=== PATIENT | male | born 1990 | race American Indian/Alaskan Native ===

== ENCOUNTER 2020-07-31 14:18 | Inpatient (IN) | payer OTHER ==
[2020-07-31] MEDS ORDERED: SODIUM CHLORIDE 0.9% 1000 ML IV SOLN IV ONE (15:19)
--- NOTE | 2020-07-31 15:21 | Event Note ---
ED Screening Note Date of service: 07/31/20 Time: 15:20 ED Screening Note: Complains of cough and shortness of breath x1 month and body aches, chills, and vomiting x2 weeks Patient states was tested for Covid 2 weeks ago and given antibiotics at another hospital, but denies being diagnosed with pneumonia at the time History of HIV-states he has not been on antiretrovirals in 5 years Patient is tachycardic, febrile, with O2 sat of 92% on room air and hypotensive This initial assessment/diagnostic orders/clinical plan/treatment(s) is/are subject to change based on patients health status, clinical progression and re- assessment by fellow clinical providers in the ED. Further treatment and workup at subsequent clinical providers discretion. Patient/guardian urged not to elope from the ED as their condition may be serious if not clinically assessed and managed. Initial orders include: Sepsis protocol
[2020-07-31 16:01] LABS: Basophils % (Auto) 0.3 % (0.0-1.8); Eosinophils % (Auto) 0.1 % (0.0-4.3); Hematocrit 28.7 % (35.5-45.6); Hemoglobin 9.3 gm/dl (11.8-15.2); Lymphocytes # (Auto) 0.6 K/mm3 (1.2-5.4); Lymphocytes % (Auto) 12.5 % (13.4-35.0); Mean Corpuscular HGB Conc 32 % (32-34); Mean Corpuscular Volume 85 fl (84-94); Monocytes # (Auto) 0.4 K/mm3 (0.0-0.8); Monocytes % (Auto) 6.9 % (0.0-7.3); Platelet Count 390 K/mm3 (140-440); Red Blood Count 3.38 M/mm3 (3.65-5.03); Red Cell Distribution Width 18.4 % (13.2-15.2)
--- NOTE | 2020-07-31 16:03 | XRay Report ---
CHEST 2 VIEWS INDICATION / CLINICAL INFORMATION: +SIRS, cough, SOB, hypoxia. COMPARISON: None available. FINDINGS: SUPPORT DEVICES: None. HEART / MEDIASTINUM: No significant abnormality. LUNGS / PLEURA: There is faint left upper lung parenchymal opacity. No pneumothorax. ADDITIONAL FINDINGS: No significant additional findings. IMPRESSION: 1. Faint left upper lung parenchymal opacity that may indicate developing pneumonia. Signer Name: Jericho Alberto MD Signed: 07/31/2020 3:58 PM Workstation Name: [id number]
[2020-07-31 16:13] LABS: Alanine Aminotransferase 34 units/L (7-56); Albumin 2.5 g/dL (3.9-5); Blood Urea Nitrogen 11 mg/dL (9-20); Calcium 7.8 mg/dL (8.4-10.2); Hemolysis Index 2
[2020-07-31 16:17] LABS: BUN/Creatinine Ratio 16
[2020-07-31] MEDS ORDERED: ACETAMINOPHEN 325 MG TAB PO ONE (16:29)
[2020-07-31] MEDS ORDERED: CEFEPIME/NS 2 GM/100 ML 2 GM/100 ML BAG IV ONE (16:51)
[2020-07-31] MEDS ORDERED: VANCOMYCIN 1,250 MG in SODIUM CHLORIDE 0.9% 500 ML 500 ML IV ONE (16:51)
[2020-07-31] MEDS ORDERED: dexAMETHasone 20 MG/5 ML VIAL IV ONE (16:58)
--- NOTE | 2020-07-31 16:58 | Emergency Department Report ---
- General Chief Complaint: Upper Respiratory Infection Stated Complaint: FLU SYMPTOMS/HIV SICK Time Seen by Provider: 07/31/20 15:14 Source: patient Mode of arrival: Ambulatory Limitations: No Limitations - History of Present Illness Initial Comments: 30-year-old male with a past medical history of HIV off antiretrovirals for the past 5 years presents to the hospital complaining not feeling good for several months. He does complain of coughing and shortness of breath x1 month. Patient just recently moved here from [place] in the last several weeks via car. 1 to 2 weeks ago he was seen at a [facility] ER. Tested negative for Covid and was prescribed antibiotics for symptoms. Patient state he has some mild improvement but started to feel bad again. Recently patient has had some intermittent vomiting without diarrhea. Patient presents with a fever but denies feeling febrile at home patient states his last time his CD4 count and viral load was tested was 5 years ago. Initially evaluated patient in triage and informed staff to initiate IV and IV fluids while waiting for room to become available - Related Data Allergies Allergy/AdvReac Type Severity Reaction Status Date / Time No Known Allergies Allergy Unverified 07/31/20 16:51 ED Review of Systems ROS: Stated complaint: FLU SYMPTOMS/HIV SICK Other details as noted in HPI Comment: All other systems reviewed and negative ED Past Medical Hx - Past Medical History Additional medical history: HIV - Surgical History Past Surgical History?: No ED Physical Exam - General Limitations: No Limitations - Other Other exam information: General: Cachectic Head: Atraumatic Eyes: normal appearance Neck: Normal appearance, no midline tenderness Chest: Clear to auscultation bilaterally CV: Tachycardic regular rhythm Abdomen: Soft, normal bowel sounds, nontender, nondistended, no rebound or guarding Back: Normal inspection Extremity: Normal inspection, full range of motion Neuro: Alert O x 3, no facial asymmetry, speech clear, no gross motor sensory deficit Psych: Appropriate behavior Skin: No rash ED Course Vital Signs 07/31/20 07/31/20 07/31/20 15:15 18:13 19:49 Temperature 100.6 F H Pulse Rate 119 H 104 H Respiratory 20 18 22 Rate Blood Pressure 83/58 Blood Pressure 107/69 [Left] O2 Sat by Pulse 92 96 Oximetry - Reevaluation(s) Reevaluation #1: 07/31/20 19:54 BP improved with fluid bolus ED Medical Decision Making - Lab Data Result diagrams: 07/31/20 15:24 07/31/20 16:54 - EKG Data -: EKG Interpreted by Me EKG shows normal: sinus rhythm, ST-T waves (No STEMI) Rate: tachycardia (109) - Radiology Data Radiology results: report reviewed Chest x-ray: Faint left upper lung parenchymal opacity which may indicate developing pneumonia - Medical Decision Making 30-year-old male with past medical history of HIV noncompliant with meds presents to the hospital with ongoing fatigue, respiratory symptoms, and presents with fever and hypoxia. X-ray suggestive of pneumonia. Given patient's general physical appearance I have a high suspicion that he has AIDS. Patient treated with unknown antibiotics for unknown diagnosis after ER evaluation in [place] within the last 2 weeks. For that reason patient was treated for hospital-acquired pneumonia with vancomycin and cefepime in the ED. 30 mL/kg bolus of normal saline ordered. Decadron 6 mg IV ordered due to hypoxia with suspicion of Covid. patient does not have any signs of lactic acidosis. Covid order set pending as well as blood cultures. Patient to be adm itted to the hospital service with ID consultation. Pt also provided po bactrim to cover for possible pcp pneumonia pt with hypotension but map >65 lactic acid normal Critical Care Time: Yes Critical care time in (mins) excluding proc time.: 35 Critical care attestation.: If time is entered above; I have spent that time in minutes in the direct care of this critically ill patient, excluding procedure time. ED Disposition Clinical Impression: Sepsis, Pneumonia, HIV (human immunodeficiency virus infection), Suspected COVID-19 virus infection, Hypoxia Disposition: OP ADMIT IP TO THIS HOSP Is pt being admited?: Yes Condition: Stable Time of Disposition: 18:28 (Dr Shearer/hosp)
[2020-07-31] MEDS ORDERED: VANCOMYCIN PHARMACY TO DOSE IV SCH (17:00)
[2020-07-31 17:32] LABS: C-Reactive Protein 3.5 mg/dL (0.00-1.30)
[2020-07-31] MEDS ORDERED: SODIUM CHLORIDE 0.9% 1000 ML 1,000 ML ONE (17:55)
[2020-07-31] MEDS ORDERED: MORPHINE 2 MG/1 ML INJ IV PRN (18:56)
[2020-07-31] MEDS ORDERED: ACETAMINOPHEN 325 MG TAB PO PRN (18:56)
[2020-07-31] MEDS ORDERED: ONDANSETRON 4 MG/2 ML INJ IV PRN (18:56)
[2020-07-31] MEDS ORDERED: MAGNESIUM HYDROXIDE (MOM) ORAL LIQD UDC PO PRN (18:56)
--- NOTE | 2020-07-31 19:09 | History and Physical Report ---
History of Present Illness Date of examination: 07/31/20 Date of admission: 07/31/2020 Chief complaint: Cough Shortness of Breath History of present illness: 30-year-old -[place] male with known history of HIV with unknown CD4 count presenting to the emergency room today complaining of shortness of breath and cough which has been ongoing for about a month. Patient indicates that he has been off his antiretroviral medication for about 5 years. He has not followed up with any physician. He just recently relocated from [place] several weeks ago. He states he was seen at the [facility] about 2 weeks ago and indicates he tested negative for COVID-19 and was also prescribed some antibiotics -name unknown. Patient has been having fever, intermittent nausea and vomiting, denies any diarrhea, denies any chest pain, no headache or dizziness, no hematuria or dysuria. Upon arrival in the emergency room he was slightly hypotensive and hypoxic. Work-up in the emergency room reveals left upper lobe infiltrate. Patient has been commenced on IV fluid, empiric IV antibiotics and will also be ruled out for COVID-19. Past History Past Medical History: other (HIV positive-unknown CD4 count) Past Surgical History: No surgical history Social history: no significant social history Family history: no significant family history Medications and Allergies Allergies Allergy/AdvReac Type Severity Reaction Status Date / Time No Known Allergies Allergy Unverified 07/31/20 16:51 Active Meds: Active Medications Acetaminophen (Acetaminophen 325 Mg Tab) 650 mg PO Q4H PRN PRN Reason: Pain MILD(1-3)/Fever >100.5/KRUEGER Enoxaparin Sodium (Enoxaparin 40 Mg/0.4 Ml Inj) 40 mg SUB-Q QDAY@2200 AMANDA; Protocol Vancomycin HCl (Vancomycin/Ns 1 Gm/250 Ml) 1 gm in 250 mls @ 125 mls/hr IV Q8H AMANDA Cefepime HCl (Cefepime/Ns 2 Gm/100 Ml) 2 gm in 100 mls @ 200 mls/hr IV Q8H AMANDA; Protocol Magnesium Hydroxide (Magnesium Hydroxide (Mom) Oral Liqd Udc) 30 ml PO Q4H PRN PRN Reason: Constipation Morphine Sulfate (Morphine 2 Mg/1 Ml Inj) 2 mg IV Q4H PRN PRN Reason: Pain, Moderate (4-6) Ondansetron HCl (Ondansetron 4 Mg/2 Ml Inj) 4 mg IV Q8H PRN PRN Reason: Nausea And Vomiting Sodium Chloride (Sodium Chloride 0.9% 10 Ml Flush Syringe) 10 ml IV BID AMANDA Sodium Chloride (Sodium Chloride 0.9% 10 Ml Flush Syringe) 10 ml IV PRN PRN PRN Reason: LINE FLUSH Review of Systems Constitutional: fever, chills Ears, nose, mouth and throat: no nasal congestion, no sore throat Cardiovascular: no chest pain, no palpitations Respiratory: cough, shortness of breath Gastrointestinal: no abdominal pain, no nausea, no vomiting, no diarrhea Genitourinary Male: no dysuria, no hematuria, no flank pain Integumentary: no rash, no pruritis Neurological: no headaches, no confusion Psychiatric: no anxiety, no depression Exam - Constitutional Vitals: Temp Pulse Resp BP Pulse Ox 100.6 F H 119 H 18 83/58 92 07/31/20 15:15 07/31/20 15:15 07/31/20 18:13 07/31/20 15:15 07/31/20 15:15 General appearance: Present: no acute distress, cachectic - EENT Eyes: Present: PERRL, EOM intact. Absent: scleral icterus ENT: hearing intact, clear oral mucosa, dentition normal - Neck Neck: Present: supple, normal ROM - Respiratory Respiratory effort: normal Respiratory: bilateral: diminished - Cardiovascular Rhythm: regular Heart Sounds: Present: S1 & S2. Absent: gallop, systolic murmur, diastolic murmur, rub - Extremities Extremities: no ischemia, pulses intact, pulses symmetrical, No edema, normal temperature, normal color, Full ROM Peripheral Pulses: within normal limits - Abdominal General gastrointestinal: Present: soft, non-tender, non-distended, normal bowel sounds. Absent: mass - Integumentary Integumentary: Present: clear, warm, dry. Absent: rash - Musculoskeletal Musculoskeletal: strength equal bilaterally - Psychiatric Psychiatric: appropriate mood/affect, intact judgment & insight, memory intact, cooperative - Neurologic Neurologic: CNII-XII intact, no focal deficits, moves all extremities Results - Labs CBC & Chem 7: 07/31/20 15:24 07/31/20 16:54 Labs: Abnormal lab results 07/31/20 07/31/20 07/31/20 Range/Units 15:24 15:24 16:54 RBC 3.38 L (3.65-5.03) M/mm3 Hgb 9.3 L (11.8-15.2) gm/dl Hct 28.7 L (35.5-45.6) % RDW 18.4 H (13.2-15.2) % Lymph % (Auto) 12.5 L (13.4-35.0) % Lymph # (Auto) 0.6 L (1.2-5.4) K/mm3 Seg Neutrophils % 80.2 H (40.0-70.0) % D-Dimer 587.40 H (0-234) ng/mlDDU Creatinine 0.7 L (0.8-1.3) mg/dL Calcium 7.8 L (8.4-10.2) mg/dL Ferritin (30.0-300.0) ng/mL AST 69 H (5-40) units/L Lactate Dehydrogenase (91-180) units/L C-Reactive Protein (0.00-1.30) mg/dL Albumin 2.5 L (3.9-5) g/dL 07/31/20 07/31/20 Range/Units 16:54 16:54 RBC (3.65-5.03) M/mm3 Hgb (11.8-15.2) gm/dl Hct (35.5-45.6) % RDW (13.2-15.2) % Lymph % (Auto) (13.4-35.0) % Lymph # (Auto) (1.2-5.4) K/mm3 Seg Neutrophils % (40.0-70.0) % D-Dimer (0-234) ng/mlDDU Creatinine (0.8-1.3) mg/dL Calcium (8.4-10.2) mg/dL Ferritin > 2000.0 H (30.0-300.0) ng/mL AST (5-40) units/L Lactate Dehydrogenase 408 H (91-180) units/L C-Reactive Protein 3.50 H (0.00-1.30) mg/dL Albumin (3.9-5) g/dL Assessment and Plan - Patient Problems (1) Pneumonia Current Visit: Yes Status: Acute Plan to address problem: Patient commenced on empiric IV antibiotics. We will await culture results. We will also await recommendation from infectious disease. We will consider PCP prophylaxis in view of his HIV/AIDS disease. (2) Hypoxia Current Visit: Yes Status: Acute Plan to address problem: Possibly secondary to the pneumonia. We will keep O2 saturation greater or equal to 94%. (3) HIV (human immunodeficiency virus infection) Current Visit: Yes Status: Acute Plan to address problem: CD4 count unknown. Patient has been off his antiretroviral agents for about 5 years. We will await evaluation by infectious disease. (4) Sepsis Current Visit: Yes Status: Acute Plan to address problem: Secondary to the pneumonia. Continue empiric IV antibiotics and IV fluid. (5) Suspected COVID-19 virus infection Current Visit: Yes Status: Acute Plan to address problem: Patient placed on isolation precautions. We will await COVID-19 testing. We will also await evaluation by infectious disease. (6) DVT prophylaxis Current Visit: Yes Status: Acute Plan to address problem: Patient placed on subcutaneous Lovenox. (7) Full code status Current Visit: Yes Status: Acute Plan to address problem: Patient is full code.
[2020-07-31] MEDS: VANCOMYCIN/NS 1 GM/250 ML 1 GM/250 ML BAG IV SCH (22:05)
[2020-07-31] MEDS: SULFAMETHOXAZOLE/TRIMETHOPRIM 800/160MG DS TAB PO SCH (22:05)
[2020-07-31] MEDS: ENOXAPARIN 40 MG/0.4 ML INJ SUB-Q SCH (22:06)
[2020-08-01 04:07] LABS: Bacteria,Urine 1+ /HPF (Negative); Bilirubin,Urine NEG (Negative); Blood,Urine NEG (Negative); Color,Urine Straw (Yellow); Mucus,Urine FEW /HPF; Protein,Urine <15 mg/dL mg/dL (Negative); RBC,Urine < 1.0 /HPF (0.0-6.0); Urobilinogen,Urine < 2.0 mg/dL (<2.0)
[2020-08-01 06:23] LABS: Basophils % (Auto) 0.1 % (0.0-1.8); Hematocrit 30.5 % (35.5-45.6); Hemoglobin 9.8 gm/dl (11.8-15.2); Lymphocytes # (Auto) 1.1 K/mm3 (1.2-5.4); Lymphocytes % (Auto) 15.3 % (13.4-35.0); Mean Corpuscular HGB Conc 32 % (32-34); Mean Corpuscular Volume 87 fl (84-94); Monocytes # (Auto) 0.3 K/mm3 (0.0-0.8); Platelet Count 374 K/mm3 (140-440); Red Blood Count 3.52 M/mm3 (3.65-5.03); Red Cell Distribution Width 18.6 % (13.2-15.2)
[2020-08-01] MEDS ORDERED: guaiFENesin DM 200/20 MG ORAL LIQD 10 ML PO PRN (06:24)
[2020-08-01] MEDS: CEFEPIME/NS 2 GM/100 ML 2 GM/100 ML BAG IV SCH ×2 (06:30→11:44)
[2020-08-01 06:45] LABS: INR 1.02 (0.87-1.13)
[2020-08-01 07:30] LABS: BUN/Creatinine Ratio 18; Blood Urea Nitrogen 11 mg/dL (9-20); Calcium 7.7 mg/dL (8.4-10.2); Hemolysis Index 0
[2020-08-01] MEDS: VANCOMYCIN/NS 1 GM/250 ML 1 GM/250 ML BAG IV SCH ×2 (08:05→13:50)
[2020-08-01] MEDS: guaiFENesin/CODEINE 100-10MG ORAL LIQD 5 ML PO PRN ×2 (11:44→22:55)
[2020-08-01] MEDS: SULFAMETHOXAZOLE/TRIMETHOPRIM 800/160MG DS TAB PO SCH (11:45)
[2020-08-01] MEDS: dexAMETHasone 4 MG/ML VIAL IV SCH (11:45)
--- NOTE | 2020-08-01 16:10 | Consultation ---
History of Present Illness - Reason for Consult Consult date: 08/01/20 - History of Present Illness 30-year-old man past medical history HIV presented to ER complaining of shortness of breath. He notes his began possibly 1 month prior to admission, though he just recently relocated to [place] from [place] several weeks ago and has not established care with any physicians in the state yet. He stopped taking his antiretrovirals approximately 5 years previous, and has an unknown CD4 count at the present time. He says negative for Covid approximately weeks prior to hospital in [place] and was given his antibiotics at that time which did not improve his symptoms. He complains of associated fevers, nausea, vomiting, denies any other symptoms. Febrile to 100.6 with a white count of 6.9. Normal renal function, normal procalcitonin. Elevated inflammatory markers elevated lactate dehydrogenase. Blood cultures currently pending. He is on cefepime and vancomycin as well as Bactrim. Imaging personally revivewed: CXR: faint DESIRE parenchymal opacity. Review of systems: Deferred due to PPE conservation strategy. Past History Past Medical History: other (HIV positive-unknown CD4 count) Past Surgical History: No surgical history Social history: no significant social history Family history: no significant family history Medications and Allergies Allergies Allergy/AdvReac Type Severity Reaction Status Date / Time No Known Allergies Allergy Unverified 07/31/20 16:51 Active Meds: Active Medications Acetaminophen (Acetaminophen 325 Mg Tab) 650 mg PO Q4H PRN PRN Reason: Pain MILD(1-3)/Fever >100.5/KRUEGER Dexamethasone (Dexamethasone 4 Mg/Ml Vial) 6 mg IV Q24HR [facility] Last Admin: 08/01/20 11:45 Dose: 6 mg Documented by: Enoxaparin Sodium (Enoxaparin 40 Mg/0.4 Ml Inj) 40 mg SUB-Q QDAY@2200 AMANDA; Protocol Last Admin: 07/31/20 22:06 Dose: 40 mg Documented by: Guaifenesin (Guaifenesin Dm 200/20 Mg Oral Liqd 10 Ml) 10 ml PO Q4H PRN PRN Reason: Cough Vancomycin HCl (Vancomycin/Ns 1 Gm/250 Ml) 1 gm in 250 mls @ 125 mls/hr IV Q8H [facility] Last Admin: 08/01/20 13:50 Dose: 125 mls/hr Documented by: Cefepime HCl (Cefepime/Ns 2 Gm/100 Ml) 2 gm in 100 mls @ 200 mls/hr IV Q8H AMANDA; Protocol Last Admin: 08/01/20 11:44 Dose: 200 mls/hr Documented by: Magnesium Hydroxide (Magnesium Hydroxide (Mom) Oral Liqd Udc) 30 ml PO Q4H PRN PRN Reason: Constipation Morphine Sulfate (Morphine 2 Mg/1 Ml Inj) 2 mg IV Q4H PRN PRN Reason: Pain, Moderate (4-6) Last Admin: 08/01/20 14:55 Dose: 2 mg Documented by: Ondansetron HCl (Ondansetron 4 Mg/2 Ml Inj) 4 mg IV Q8H PRN PRN Reason: Nausea And Vomiting Pseudoephedrine/Acetam/Chlorphenir (Guaifenesin/Codeine 100-10mg Oral Liqd 5 Ml) 10 ml PO Q4H PRN PRN Reason: Cough Last Admin: 08/01/20 11:44 Dose: 10 ml Documented by: Sodium Chloride (Sodium Chloride 0.9% 10 Ml Flush Syringe) 10 ml IV BID AMANDA Last Admin: 08/01/20 11:10 Dose: 10 ml Documented by: Sodium Chloride (Sodium Chloride 0.9% 10 Ml Flush Syringe) 10 ml IV PRN PRN PRN Reason: LINE FLUSH Trimethoprim/Sulfamethoxazole (Sulfamethoxazole/Trimethoprim 800/160mg Ds Tab) 1 each PO Q12HR [facility]; Protocol Last Admin: 08/01/20 11:45 Dose: 1 each Documented by: Physical Examination - Physical Exam Narrative exam: Physical exam deferred due to PPE conservation strategy. Please refer to [facility] team's note. - Constitutional Vitals: Vital Signs Temp Pulse Resp BP Pulse Ox 100.6 F H 71 26 H 90/62 100 07/31/20 15:15 08/01/20 06:30 08/01/20 06:30 08/01/20 06:30 08/01/20 06:30 Results - Labs CBC & Chem 7: 08/01/20 05:49 08/01/20 05:49 Labs: Abnormal lab results 07/31/20 07/31/20 07/31/20 Range/Units 15:24 15:24 16:54 RBC 3.38 L (3.65-5.03) M/mm3 Hgb 9.3 L (11.8-15.2) gm/dl Hct 28.7 L (35.5-45.6) % RDW 18.4 H (13.2-15.2) % Lymph % (Auto) 12.5 L (13.4-35.0) % Lymph # (Auto) 0.6 L (1.2-5.4) K/mm3 Seg Neutrophils % 80.2 H (40.0-70.0) % D-Dimer 587.40 H (0-234) ng/mlDDU Creatinine 0.7 L (0.8-1.3) mg/dL Glucose (75-100) mg/dL Calcium 7.8 L (8.4-10.2) mg/dL Ferritin (30.0-300.0) ng/mL AST 69 H (5-40) units/L Lactate Dehydrogenase (91-180) units/L C-Reactive Protein (0.00-1.30) mg/dL Albumin 2.5 L (3.9-5) g/dL 07/31/20 07/31/20 08/01/20 Range/Units 16:54 16:54 05:49 RBC 3.52 L (3.65-5.03) M/mm3 Hgb 9.8 L (11.8-15.2) gm/dl Hct 30.5 L (35.5-45.6) % RDW 18.6 H (13.2-15.2) % Lymph % (Auto) (13.4-35.0) % Lymph # (Auto) 1.1 L (1.2-5.4) K/mm3 Seg Neutrophils % 79.6 H (40.0-70.0) % D-Dimer (0-234) ng/mlDDU Creatinine (0.8-1.3) mg/dL Glucose (75-100) mg/dL Calcium (8.4-10.2) mg/dL Ferritin > 2000.0 H (30.0-300.0) ng/mL AST (5-40) units/L Lactate Dehydrogenase 408 H (91-180) units/L C-Reactive Protein 3.50 H (0.00-1.30) mg/dL Albumin (3.9-5) g/dL 08/01/20 Range/Units 05:49 RBC (3.65-5.03) M/mm3 Hgb (11.8-15.2) gm/dl Hct (35.5-45.6) % RDW (13.2-15.2) % Lymph % (Auto) (13.4-35.0) % Lymph # (Auto) (1.2-5.4) K/mm3 Seg Neutrophils % (40.0-70.0) % D-Dimer (0-234) ng/mlDDU Creatinine 0.6 L (0.8-1.3) mg/dL Glucose 138 H (75-100) mg/dL Calcium 7.7 L (8.4-10.2) mg/dL Ferritin (30.0-300.0) ng/mL AST (5-40) units/L Lactate Dehydrogenase (91-180) units/L C-Reactive Protein (0.00-1.30) mg/dL Albumin (3.9-5) g/dL Assessment and Plan Cultures: Blood culture pending Covid pending A/P: 30-year-old man has medical history HIV not on treatment but the hospital shortness of breath as Covid PUI #Left upper lobe pneumonia/Covid PUI: Await Covid testing. Given chronicity of symptoms and prior Covid test could be other etiologies. Pneumocystis is typically bilateral, however that may not show up on chest x-ray. Normal procalcitonin. He is not currently hypoxic. #HIV: Not on medications for 5 years. No HIV provider in [place]. Will hold off on initiation of ART pending diagnosis Recs: -Order chest CT to rule out pneumocystis -Decrease Bactrim for now to prophylactic dose of every 24 hours. Patient is currently stable, especially need empirically treat for BJP pending work-up. -Follow-up Covid testing -Check CD4 and viral load -Recommend patient follow-up with [place] [facility] as outpatient due to uninsured status. -Stop vancomycin in the meantime. -Continue cefepime pending CT. Thank you for the consult, we will continue to follow. Dr. Bonner taking over tomorrow Valentino Pulliam MD [facility] O: [phone] F: [phone]
--- NOTE | 2020-08-01 18:45 | Cat Scan Report ---
CT chest wo con HISTORY: Infection. COMPARISON: None TECHNIQUE: Chest CT exam. All CT scans at this location are performed using CT dose reduction for ALA RA by means of automated exposure control. FINDINGS: CT CHEST: Lungs: There is bilateral groundglass opacities with mild associated thickening of interlobular septa . A couple of pneumatoceles are present for example in the right upper lobe on image 26 and 27 of ser ies 2. Associated pebronchial thickening. No peripheral subpleural predilection. Trachea and Bronchi: No significant abnormality. Mediastinum/Lymph nodes: No lymphadenopathy. Heart: No significant abnormality. Vasculature: No significant abnormality. Osseous Structures: No aggressive appearing osseous lesions. Additional Findings: None IMPRESSION: 1. Bilateral airspace disease most consistent with an infectious etiology. Pneumocystis pneumonia is a concern in the correct clinical setting. Signer Name: Ryley Davies MD Signed: 08/01/2020 6:41 PM Workstation Name: [id number]
--- NOTE | 2020-08-01 19:39 | Progress Note ---
Assessment and Plan (1) Pneumonia Current Visit: Yes Status: Acute Plan to address problem: Patient commenced on empiric IV antibiotics. We will continue on antibiotics and follow infectious disease recommendation (2) Hypoxia Current Visit: Yes Status: Acute Plan to address problem: Possibly secondary to the pneumonia. We will keep O2 saturation greater or equal to 94%. (3) HIV (human immunodeficiency virus infection) Current Visit: Yes Status: Acute Plan to address problem: CD4 count unknown. Patient has been off his antiretroviral agents for about 5 years. We will check CD4 count (4) Sepsis Current Visit: Yes Status: Acute Plan to address problem: Secondary to the pneumonia. Continue empiric IV antibiotics and IV fluid. (5) Suspected COVID-19 virus infection Current Visit: Yes Status: Acute Plan to address problem: Covid test was negative (6) DVT prophylaxis Current Visit: Yes Status: Acute Plan to address problem: Patient placed on subcutaneous Lovenox. (7) Full code status Current Visit: Yes Status: Acute Plan to address problem: Patient is full code. Subjective Date of service: 08/01/20 Principal diagnosis: (1) Pneumonia Interval history: 30-year-old -[place] male with known history of HIV with unknown CD4 count presenting to the emergency room today complaining of shortness of breath and cough which has been ongoing for about a month. Patient indicates that he has been off his antiretroviral medication for about 5 years. He has not followed up with any physician. He just recently relocated from [place] several weeks ago. He states he was seen at the [facility] a bout 2 weeks ago and indicates he tested negative for COVID-19 and was also prescribed some antibiotics -name unknown. Patient has been having fever, intermittent nausea and vomiting, denies any diarrhea, denies any chest pain, no headache or dizziness, no hematuria or dysuria. Upon arrival in the emergency room he was slightly hypotensive and hypoxic. Work-up in the emergency room reveals left upper lobe infiltrate. Patient has been commenced on IV fluid, empiric IV antibiotics and will also be ruled out for COVID-19. 08/01/2020 Complained of cough this a.m. Denies any fever or chills. COVID-19 negative Objective - Constitutional Vitals: Vital Signs - 12hr 08/01/20 08/01/20 08/01/20 07:46 08:00 08:16 Pulse Rate 70 68 70 Respiratory 28 H 26 H 21 Rate Blood Pressure 93/69 99/66 99/66 O2 Sat by Pulse 100 100 100 Oximetry 08/01/20 08/01/20 08/01/20 08:30 08:46 09:00 Pulse Rate 67 87 88 Respiratory 26 H 12 22 Rate Blood Pressure 99/66 99/66 107/77 O2 Sat by Pulse 100 95 89 Oximetry 08/01/20 08/01/20 08/01/20 09:16 09:30 09:46 Pulse Rate 77 82 81 Respiratory 21 14 15 Rate Blood Pressure 107/77 107/77 107/77 O2 Sat by Pulse 92 99 95 Oximetry 08/01/20 08/01/20 08/01/20 10:00 10:16 10:30 Pulse Rate 90 86 88 Respiratory 18 14 18 Rate Blood Pressure 106/72 106/72 106/72 O2 Sat by Pulse 97 94 99 Oximetry 08/01/20 08/01/20 08/01/20 10:46 11:00 11:16 Pulse Rate 86 80 79 Respiratory 16 27 H 29 H Rate Blood Pressure 106/72 102/67 102/67 O2 Sat by Pulse 100 100 100 Oximetry 08/01/20 08/01/20 08/01/20 11:30 11:46 12:00 Pulse Rate 78 96 H 84 Respiratory 28 H 26 H 20 Rate Blood Pressure 102/67 102/67 106/77 O2 Sat by Pulse 100 99 94 Oximetry 08/01/20 08/01/20 08/01/20 12:16 12:30 12:46 Pulse Rate 83 95 H 94 H Respiratory 22 24 16 Rate Blood Pressure 106/77 106/77 106/77 O2 Sat by Pulse 100 92 98 Oximetry 08/01/20 08/01/20 08/01/20 13:00 13:16 13:30 Pulse Rate 90 90 86 Respiratory 21 17 30 H Rate Blood Pressure 107/68 107/68 107/68 O2 Sat by Pulse 94 100 100 Oximetry 08/01/20 08/01/20 08/01/20 13:46 14:00 14:16 Pulse Rate 87 88 93 H Respiratory 26 H 23 14 Rate Blood Pressure 107/68 102/66 102/66 O2 Sat by Pulse 100 100 Oximetry 08/01/20 08/01/20 08/01/20 14:30 14:46 15:00 Pulse Rate 91 H 88 84 Respiratory 17 23 22 Rate Blood Pressure 102/66 102/66 99/67 O2 Sat by Pulse 100 100 100 Oximetry 08/01/20 08/01/20 08/01/20 15:16 15:30 15:46 Pulse Rate 82 81 79 Respiratory 12 25 H 26 H Rate Blood Pressure 99/67 99/67 99/67 O2 Sat by Pulse 100 100 100 Oximetry 08/01/20 08/01/20 08/01/20 16:00 16:16 16:30 Pulse Rate 85 76 81 Respiratory 20 18 21 Rate Blood Pressure 98/62 98/62 98/62 O2 Sat by Pulse 100 99 100 Oximetry 08/01/20 08/01/20 08/01/20 16:46 17:00 17:16 Pulse Rate 77 75 78 Respiratory 24 16 24 Rate Blood Pressure 98/62 98/71 98/71 O2 Sat by Pulse 100 100 Oximetry 08/01/20 08/01/20 08/01/20 17:30 18:43 18:54 Pulse Rate 95 H 83 151 H Respiratory 17 Rate Blood Pressure 98/71 99/72 98/71 O2 Sat by Pulse 97 92 Oximetry General appearance: Present: no acute distress, well-nourished - EENT Eyes: PERRL, EOM intact ENT: hearing intact, clear oral mucosa Ears: bilateral: normal - Neck Neck: supple, normal ROM - Respiratory Respiratory effort: normal Respiratory: bilateral: CTA - Breasts Breasts: normal - Cardiovascular Rhythm: regular Heart Sounds: Present: S1 & S2. Absent: gallop, rub Extremities: pulses intact, No edema, normal color, Full ROM - Gastrointestinal General gastrointestinal: Present: soft, non-tender, non-distended, normal bowel sounds - Genitourinary Male genitourinary: normal - Integumentary Integumentary: clear, warm, dry - Musculoskeletal Musculoskeletal: 1, strength equal bilaterally - Neurologic Neurologic: moves all extremities - Psychiatric Psychiatric: memory intact, appropriate mood/affect, intact judgment & insight - Labs CBC & Chem 7: 08/01/20 05:49 08/01/20 05:49 Labs: Abnormal lab results 08/01/20 08/01/20 Range/Units 05:49 05:49 RBC 3.52 L (3.65-5.03) M/mm3 Hgb 9.8 L (11.8-15.2) gm/dl Hct 30.5 L (35.5-45.6) % RDW 18.6 H (13.2-15.2) % Lymph # (Auto) 1.1 L (1.2-5.4) K/mm3 Seg Neutrophils % 79.6 H (40.0-70.0) % Creatinine 0.6 L (0.8-1.3) mg/dL Glucose 138 H (75-100) mg/dL Calcium 7.7 L (8.4-10.2) mg/dL
[2020-08-01] MEDS: ENOXAPARIN 40 MG/0.4 ML INJ SUB-Q SCH (22:55)
[2020-08-02] MEDS: CEFEPIME/NS 2 GM/100 ML 2 GM/100 ML BAG IV SCH ×4 (02:35→17:24)
[2020-08-02 07:50] LABS: Basophils % (Auto) 0.1 % (0.0-1.8); Hematocrit 28.2 % (35.5-45.6); Hemoglobin 9.1 gm/dl (11.8-15.2); Lymphocytes # (Auto) 0.6 K/mm3 (1.2-5.4); Lymphocytes % (Auto) 9.7 % (13.4-35.0); Mean Corpuscular HGB Conc 32 % (32-34); Mean Corpuscular Volume 84 fl (84-94); Monocytes # (Auto) 0.6 K/mm3 (0.0-0.8); Monocytes % (Auto) 9.4 % (0.0-7.3); Platelet Count 363 K/mm3 (140-440); Red Blood Count 3.35 M/mm3 (3.65-5.03); Red Cell Distribution Width 18.9 % (13.2-15.2)
[2020-08-02 08:07] LABS: INR 1.01 (0.87-1.13)
[2020-08-02 08:10] LABS: Blood Urea Nitrogen 9 mg/dL (9-20); Hemolysis Index 1
[2020-08-02 08:12] LABS: BUN/Creatinine Ratio 18
[2020-08-02] MEDS ORDERED: SULFAMETHOXAZOLE/TRIMETHOPRIM 800/160MG DS TAB PO SCH (10:00)
[2020-08-02] MEDS: dexAMETHasone 4 MG/ML VIAL IV SCH (11:30)
[2020-08-02] MEDS ORDERED: PNEUMOCOCCAL 23 Valent 0.5 ML VIAL IM ONE (12:00)
[2020-08-02] MEDS ORDERED: FLU VACC QUAD 2020-2021 (6 months +)/PF 60 0.5 ML SYRINGE IM ONE (12:00)
--- NOTE | 2020-08-02 12:25 | Progress Note ---
Assessment and Plan Assessment and plan: --Pneumonia Patient started on empiric IV antibiotics. Follow cultures, supportive care, oxygen --Hypoxia Possibly secondary to the pneumonia. Closely monitor oxygen levels , adjust as needed Titrate O2 sats to more than 90% --History of HIV (human immunodeficiency virus infection) CD4 count unknown. Patient has been off his antiretroviral agents for about 5 years. ID following, management per ID -- Sepsis due to HIV pneumonia Follow cultures ,continue empiric IV antibiotics IV fluids, treat the underlying cause ID following --PUI ; Samuel PCR test negative DC isolation, treat underlying pneumonia --DVT prophylaxis Patient placed on subcutaneous Lovenox. -- Full code status Current Visit: Yes Status: Acute We will closely monitor the patient and adjust management as needed Plan of care reviewed with the patient and his nurse History Interval history: I have seen and examined the patient at the bedside Patient's chart and medications reviewed No new complaints Vital signs noted Hospitalist Physical - Constitutional Vitals: Temp Pulse Resp BP Pulse Ox 98.5 F 85 18 99/67 96 08/02/20 07:48 08/02/20 07:49 08/02/20 07:48 08/02/20 07:48 08/02/20 07:49 General appearance: Present: no acute distress, well-nourished - EENT Eyes: Present: PERRL, EOM intact - Neck Neck: Present: supple, normal ROM - Respiratory Respiratory effort: normal Respiratory: bilateral: diminished, negative: rales, rhonchi, wheezing - Cardiovascular Rhythm: regular Heart Sounds: Present: S1 & S2 - Extremities Extremities: no ischemia, No edema - Abdominal General gastrointestinal: soft, non-tender, non-distended, normal bowel sounds - Integumentary Integumentary: Present: clear, warm - Psychiatric Psychiatric: appropriate mood/affect, cooperative - Neurologic Neurologic: moves all extremities Results - Labs CBC & Chem 7: 08/02/20 06:50 08/02/20 06:50 Labs: Laboratory Last Values WBC 6.1 K/mm3 (4.5-11.0) 08/02/20 06:50 RBC 3.35 M/mm3 (3.65-5.03) L 08/02/20 06:50 Hgb 9.1 gm/dl (11.8-15.2) L 08/02/20 06:50 Hct 28.2 % (35.5-45.6) L 08/02/20 06:50 MCV 84 fl (84-94) 08/02/20 06:50 MCH 27 pg (28-32) L 08/02/20 06:50 MCHC 32 % (32-34) 08/02/20 06:50 RDW 18.9 % (13.2-15.2) H 08/02/20 06:50 Plt Count 363 K/mm3 (140-440) 08/02/20 06:50 Lymph % (Auto) 9.7 % (13.4-35.0) L 08/02/20 06:50 [place] % (Auto) 9.4 % (0.0-7.3) H 08/02/20 06:50 Eos % (Auto) 0.0 % (0.0-4.3) 08/02/20 06:50 Baso % (Auto) 0.1 % (0.0-1.8) 08/02/20 06:50 Lymph # (Auto) 0.6 K/mm3 (1.2-5.4) L 08/02/20 06:50 [place] # (Auto) 0.6 K/mm3 (0.0-0.8) 08/02/20 06:50 Eos # (Auto) 0.0 K/mm3 (0.0-0.4) 08/02/20 06:50 Baso # (Auto) 0.0 K/mm3 (0.0-0.1) 08/02/20 06:50 Seg Neutrophils % 80.8 % (40.0-70.0) H 08/02/20 06:50 Seg Neutrophils # 5.0 K/mm3 (1.8-7.7) 08/02/20 06:50 PT 13.1 Sec. (12.2-14.9) 08/02/20 06:50 INR 1.01 (0.87-1.13) 08/02/20 06:50 D-Dimer 587.40 ng/mlDDU (0-234) H 07/31/20 16:54 Sodium 139 mmol/L (137-145) 08/02/20 06:50 Potassium 4.1 mmol/L (3.6-5.0) 08/02/20 06:50 Chloride 106.6 mmol/L (98-107) 08/02/20 06:50 Carbon Dioxide 27 mmol/L (22-30) 08/02/20 06:50 Anion Gap 10 mmol/L 08/02/20 06:50 BUN 9 mg/dL (9-20) 08/02/20 06:50 Creatinine 0.5 mg/dL (0.8-1.3) L 08/02/20 06:50 Estimated GFR > 60 ml/min 08/02/20 06:50 BUN/Creatinine Ratio 18 % 08/02/20 06:50 Glucose 84 mg/dL (75-100) 08/02/20 06:50 Lactic Acid 1.70 mmol/L (0.7-2.0) 07/31/20 18:07 Calcium 8.0 mg/dL (8.4-10.2) L 08/02/20 06:50 Ferritin > 2000.0 ng/mL (30.0-300.0) H 07/31/20 16:54 Total Bilirubin 0.20 mg/dL (0.1-1.2) 07/31/20 15:24 AST 69 units/L (5-40) H 07/31/20 15:24 ALT 34 units/L (7-56) 07/31/20 15:24 Alkaline Phosphatase 71 units/L (35-129) 07/31/20 15:24 Lactate Dehydrogenase 408 units/L (91-180) H 07/31/20 16:54 C-Reactive Protein 3.50 mg/dL (0.00-1.30) H 07/31/20 16:54 Total Protein 6.6 g/dL (6.3-8.2) 07/31/20 15:24 Albumin 2.5 g/dL (3.9-5) L 07/31/20 15:24 Albumin/Globulin Ratio 0.6 % 07/31/20 15:24 Procalcitonin 0.08 ng/mL (<0.15) 07/31/20 16:54 Urine Color Straw (Yellow) 07/31/20 Unknown Urine Turbidity Clear (Clear) 07/31/20 Unknown Urine pH 6.0 (5.0-7.0) 07/31/20 Unknown Ur Specific [place] 1.006 (1.003-1.030) 07/31/20 Unknown Urine Protein <15 mg/dl mg/dL (Negative) 07/31/20 Unknown Urine Glucose (UA) Neg mg/dL (Negative) 07/31/20 Unknown Urine Ketones Neg mg/dL (Negative) 07/31/20 Unknown Urine Blood Neg (Negative) 07/31/20 Unknown Urine Nitrite Neg (Negative) 07/31/20 Unknown Urine Bilirubin Neg (Negative) 07/31/20 Unknown Urine Urobilinogen < 2.0 mg/dL (<2.0) 07/31/20 Unknown Ur Leukocyte Esterase Neg (Negative) 07/31/20 Unknown Urine WBC (Auto) 1.0 /HPF (0.0-6.0) 07/31/20 Unknown Urine RBC (Auto) < 1.0 /HPF (0.0-6.0) 07/31/20 Unknown Urine Bacteria (Auto) 1+ /HPF (Negative) 07/31/20 Unknown Urine Mucus Few /HPF 07/31/20 Unknown Coronavirus (PCR) Negative (Negative) 08/01/20 Unknown Microbiology: Microbiology 07/31/20 15:24 Peripheral/Venous Blood Culture - Preliminary NO GROWTH AFTER 24 HOURS 07/31/20 15:29 Peripheral/Venous Blood Culture - Preliminary NO GROWTH AFTER 24 HOURS Arias/IV: IV Catheter Type [Left INT / Saline Lock Antecubital] IV Catheter Type [Right INT / Saline Lock Forearm] Active Medications - Current Medications Current Medications: Generic Name Dose Route Start Last Admin Trade Name Freq PRN Reason Stop Dose Admin Acetaminophen 650 mg 07/31/20 18:56 Acetaminophen 325 Mg Tab PO Q4H PRN Pain MILD(1-3)/Fever >100.5/KRUEGER Albuterol 2.5 mg 08/02/20 06:30 Albuterol 2.5 Mg/3 Ml Nebu IH Q4HRT PRN Shortness Of Breath Dexamethasone 6 mg 08/01/20 10:00 08/02/20 11:30 Dexamethasone 4 Mg/Ml Vial IV 6 mg Q24HR AMANDA Administration Enoxaparin Sodium 40 mg 07/31/20 22:00 08/01/20 22:55 Enoxaparin 40 Mg/0.4 Ml Inj SUB-Q 40 mg QDAY@2200 AMANDA Administration Protocol Guaifenesin 10 ml 08/01/20 06:24 08/02/20 10:39 Guaifenesin Dm 200/20 Mg Oral Liqd 10 Ml PO 10 ml Q4H PRN Administration Cough Cefepime HCl 2 gm in 100 mls @ 200 mls/hr 08/01/20 02:00 08/02/20 10:39 Cefepime/Ns 2 Gm/100 Ml IV 200 mls/hr Q8H AMANDA Administration Protocol Magnesium Hydroxide 30 ml 07/31/20 18:56 Magnesium Hydroxide (Mom) Oral Liqd Udc PO Q4H PRN Constipation Morphine Sulfate 2 mg 07/31/20 18:56 08/01/20 14:55 Morphine 2 Mg/1 Ml Inj IV 2 mg Q4H PRN Administration Pain, Moderate (4-6) Ondansetron HCl 4 mg 07/31/20 18:56 Ondansetron 4 Mg/2 Ml Inj IV Q8H PRN Nausea And Vomiting Pseudoephedrine/Acetam/Chlorphenir 10 ml 08/01/20 10:36 08/01/20 22:55 Guaifenesin/Codeine 100-10mg Oral Liqd 5 Ml PO 10 ml Q4H PRN Administration Cough Sodium Chloride 10 ml 07/31/20 22:00 08/02/20 10:39 Sodium Chloride 0.9% 10 Ml Flush Syringe IV 10 ml BID AMANDA Administration Sodium Chloride 10 ml 07/31/20 18:56 Sodium Chloride 0.9% 10 Ml Flush Syringe IV PRN PRN LINE FLUSH Trimethoprim/Sulfamethoxazole 1 each 08/02/20 10:00 08/02/20 10:34 Sulfamethoxazole/Trimethoprim 800/160mg Ds Tab PO 1 each Q24HR AMANDA Administration Protocol Nutrition/Malnutrition Assess - Dietary Evaluation Nutrition/Malnutrition Findings: Nutrition Notes Start: 08/02/20 09:16 Freq: Status: Active Protocol: Document 08/02/20 09:16 (Rec: 08/02/20 09:25 [email or web address]) Nutrition Notes Need for Assessment generated from: MD Order Initial or Follow up Assessment Current Diagnosis Sepsis Other Pertinent Diagnosis HIV, pneumonia Current Diet Regular Labs/Tests Cr 0.5 Pertinent Medications Reviewed Height 6 ft 1 in Weight 63.5 kg Usual Body Weight 72.72 kg [place] Body Weight (kg) 83.63 BMI 18.4 Intake Prior to Admission Poor Weight change and time frame 12.7% wt loss in 1 mo Weight Status Underweight Subjective/Other Information MD order for ONS and malnutrition. Pt reports UBW of 160lbs 1 mo ago and weight loss related to getting sick. 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 Pt ate 75% of breakfast and 100% ONS. Pt likes ONS and would like BID. Pt has no food prefrences. Burn Absent Trauma Absent GI Symptoms None Current % PO Good (75-100%) Minimum of two criteria Yes Energy Intake (non-severe) <75% Estimated Energy Requirement >7 days Interpretation of Weight Loss (severe) >5% in 1 month Body Fat Depletion Moderate depletion (severe) Muscle Mass Moderate Depletion (severe) #1 Nutrition Diagnosis Malnutrition Etiology chronic disease As Evidenced by Signs and Symptoms <75% EER in >7 days, 12% wt loss in 1 mo, severe muscle and fat depletion Is patient on ventilator? No Is Patient Ambulatory and/or Out of Bed Yes REE-([facility]-ambulatory/OOB) [ 2137.044 NUTR.[id number]] Kcal/Kg value to use for calculation 40 Approximate Energy Requirements Using 2540 kcal/Kg Calculation Used for Recommendations Kcal/kg Additional Notes Protein: 76-95g (1.2-1.5g/kg) Fluid: 1 ml/kcal Nutrition Intervention Change Diet Order: Continue Add Supplement/Snack (indicate name/kcal Ensure Enlive Vanilla or /protein ) [place] BID Provides kCal: 1,050 Provides Protein (gm) 60 Goal #1 Continue to meet at least 75% of protein and kcal needs via PO and ONS intakes Goal #2 Weight gain/maintanance Anticipated Discharge Needs: Regular with ONS PRN Follow-Up By: 08/05/20 Additional Comments FU for stable intakes, ONS tolernace
[2020-08-02] MEDS: ENOXAPARIN 40 MG/0.4 ML INJ SUB-Q SCH (22:21)
[2020-08-03] MEDS: CEFEPIME/NS 2 GM/100 ML 2 GM/100 ML BAG IV SCH ×2 (02:28→10:59)
[2020-08-03] MEDS: guaiFENesin/CODEINE 100-10MG ORAL LIQD 5 ML PO PRN (08:35)
[2020-08-03] MEDS: ALBUTEROL 2.5 MG/3 ML NEBU IH PRN ×2 (08:46→12:07)
[2020-08-03] MEDS: SULFAMETHOXAZOLE/TRIMETHOPRIM 800/160MG DS TAB PO SCH ×3 (11:00→21:21)
[2020-08-03] MEDS: dexAMETHasone 4 MG/ML VIAL IV SCH (11:00)
--- NOTE | 2020-08-03 12:33 | Progress Note ---
Assessment and Plan Cultures: Blood cultures no growth today SARS-CoV-2 PCR negative A/P: 30-year-old man has medical history HIV not on treatment but the hospital shortness of breath as Covid PUI #Left upper lobe pneumonia/PJP pneumonia?: SARS-CoV-2 PCR negative. Pneumocystis is typically bilateral, however that may not show up on chest x- ray. Normal procalcitonin. Patient is not currently hypoxic. O2 sats over 92%. CT chest shows bilateral airspace disease. #HIV: Not on medications for 5 years. No HIV provider in [place]. Will hold off on initiation of ART pending diagnosis Recs: -Start oral Bactrim DS 2 tablets p.o. 3 times daily for 21 days then bactrim DS 1 tab qday -Start Levaquin 500 g p.o. total 5 days to cover atypical pneumonia -Stop cefepime -No indication for steroids given the patient is not hypoxic -Follow-up CD4 and viral load -Recommend patient follow-up with [facility] as outpatient due to uninsured status. Overall prognosis guarded patient needs to follow-up with HIV clinic Vivian Bonner MD [facility] ([facility]) Office [phone] Subjective Date of service: 08/03/20 Principal diagnosis: (1) Pneumonia Interval history: Patient reported feeling better, denies any fever, mild cough. Objective - Exam Narrative Exam: General appearance: Alert in NAD cachectic Eyes: anicteric sclerae, moist conjunctivae; no lid-lag; PERRLA HENT: Normocephalic, Atraumatic; normal external ears, nares open, oropharynx clear Neck: supple, tracheal midline, no JVD Lungs: CTA CV: RRR no murmur Abdomen: Soft, non-tender; no masses or hepatosplenomegaly Extremities: no edema, no cyanosis Skin: No rash. Psych: no agitated Neuro: alert and oriented x 3. Moving all extermities - Constitutional Vitals: Vital Signs Temp Pulse Resp BP Pulse Ox 97.6 F 101 H 18 107/57 98 08/03/20 11:52 08/03/20 11:52 08/03/20 11:52 08/03/20 11:52 08/03/20 09:03 Temperature -Last 24 Hours Temperature 97.6 F Temperature 97.6 F Temperature 97.6 F Temperature 97.2 F Temperature 98.6 F Temperature 97.8 F - Labs CBC & Chem 7: 08/02/20 06:50 08/02/20 06:50
--- NOTE | 2020-08-03 14:24 | Progress Note ---
Subjective Date of service: 08/03/20 Principal diagnosis: (1) Pneumonia Interval history: 30-year-old -[place]ian male with known history of HIV with unknown CD4 count presenting to the emergency room today complaining of shortness of breath and cough which has been ongoing for about a month. Patient indicates that he has been off his antiretroviral medication for about 5 years. He has not followed up with any physician. He just recently relocated from [place] several weeks ago. He states he was seen at the [facility] about 2 weeks ago and indicates he tested negative for COVID-19 and was also prescribed some antibiotics -name unknown. Patient has been having fever, intermittent nausea and vomiting, denies any diarrhea, denies any chest pain, no headache or dizziness, no hematuria or dysuria. Upon arrival in the emergency room he was slightly hypotensive and hypoxic. Work-up in the emergency room reveals left upper lobe infiltrate. 08/03 patient is alert and oriented, no apparent distress, emaciated, tested negative for Covid 19 Assessment and plan: --Pneumonia Patient started on empiric IV antibiotics. Follow cultures, supportive care, oxygen --Hypoxia Possibly secondary to the pneumonia. Closely monitor oxygen levels , adjust as needed Titrate O2 sats to more than 90% --History of HIV (human immunodeficiency virus infection) CD4 count unknown. Patient has been off his antiretroviral agents for about 5 years. ID following, management per ID -- Sepsis due to HIV pneumonia Follow cultures ,continue empiric IV antibiotics IV fluids, treat the underlying cause ID following --PUI ; Samuel PCR test negative DC isolation, treat underlying pneumonia --DVT prophylaxis Patient placed on subcutaneous Lovenox. -- Full code status Current Visit: Yes Status: Acute We will closely monitor the patient and adjust management as needed Plan of care reviewed with the patient and his nurse Objective - Constitutional Vitals: Vital Signs - 12hr 08/03/20 08/03/20 08/03/20 03:52 08:07 09:01 Temperature 97.6 F 97.6 F Pulse Rate 80 81 Pulse Rate [ 92 H Anterior Bilateral Throughout] Respiratory 18 Rate Respiratory 20 Rate [Anterior Bilateral Throughout] Blood Pressure 101/70 105/67 Blood Pressure [Left] O2 Sat by Pulse 96 97 Oximetry 08/03/20 08/03/20 08/03/20 09:03 11:52 12:28 Temperature 97.6 F Pulse Rate 101 H Pulse Rate [ 100 H Anterior Bilateral Throughout] Respiratory 18 Rate Respiratory 20 Rate [Anterior Bilateral Throughout] Blood Pressure Blood Pressure 107/57 [Left] O2 Sat by Pulse 98 Oximetry General appearance: Present: no acute distress, cachectic - EENT Eyes: PERRL, EOM intact ENT: hearing intact - Neck Neck: supple, normal ROM - Respiratory Respiratory effort: normal Respiratory: bilateral: CTA - Cardiovascular Rhythm: regular Heart Sounds: Present: S1 & S2 Extremities: No edema - Gastrointestinal General gastrointestinal: Present: soft, non-tender Rectal Exam: deferred - Integumentary Integumentary: clear - Neurologic Neurologic: moves all extremities - Psychiatric Psychiatric: appropriate mood/affect - Labs CBC & Chem 7: 08/02/20 06:50 08/02/20 06:50
[2020-08-03] MEDS: levoFLOXacin 500 MG TAB PO SCH (17:07)
[2020-08-03] MEDS: ENOXAPARIN 40 MG/0.4 ML INJ SUB-Q SCH (21:21)
[2020-08-04] MEDS: SULFAMETHOXAZOLE/TRIMETHOPRIM 800/160MG DS TAB PO SCH ×2 (05:30→15:21)
[2020-08-04 06:22] LABS: Hematocrit 26.7 % (35.5-45.6); Hemoglobin 8.6 gm/dl (11.8-15.2); Mean Corpuscular HGB Conc 32 % (32-34); Mean Corpuscular Volume 85 fl (84-94); Platelet Count 386 K/mm3 (140-440); Red Blood Count 3.13 M/mm3 (3.65-5.03); Red Cell Distribution Width 18.9 % (13.2-15.2)
[2020-08-04 06:43] LABS: Blood Urea Nitrogen 10 mg/dL (9-20); Calcium 8.2 mg/dL (8.4-10.2); Hemolysis Index 5
[2020-08-04 06:44] LABS: BUN/Creatinine Ratio 17
[2020-08-04] MEDS: levoFLOXacin 500 MG TAB PO SCH (09:46)
[2020-08-04] MEDS: dexAMETHasone 4 MG/ML VIAL IV SCH (09:59)
--- NOTE | 2020-08-04 11:46 | Progress Note ---
Assessment and Plan Assessment and plan: --Pneumonia Patient started on empiric IV antibiotics. Follow cultures, supportive care, oxygen --Hypoxia Possibly secondary to the pneumonia. Closely monitor oxygen levels , adjust as needed Titrate O2 sats to more than 90% --History of HIV (human immunodeficiency virus infection) CD4 count unknown. Patient has been off his antiretroviral agents for about 5 years. ID following, management per ID -- Sepsis due to HIV pneumonia Follow cultures ,continue empiric IV antibiotics IV fluids, treat the underlying cause ID following --PUI ; Samuel PCR test negative DC isolation, treat underlying pneumonia --DVT prophylaxis Patient placed on subcutaneous Lovenox. -- Full code status Current Visit: Yes Status: Acute We will closely monitor the patient and adjust management as needed Plan of care reviewed with the patient and his nurse Hospitalist Physical - Constitutional Vitals: Temp Pulse Resp BP Pulse Ox 98.9 F 80 18 102/53 100 08/04/20 08:42 08/04/20 08:42 08/04/20 08:42 08/04/20 08:42 08/04/20 08:42 General appearance: Present: no acute distress, cachectic Results - Labs CBC & Chem 7: 08/04/20 05:29 08/04/20 05:29 Labs: Laboratory Last Values WBC 3.1 K/mm3 (4.5-11.0) L 08/04/20 05:29 RBC 3.13 M/mm3 (3.65-5.03) L 08/04/20 05:29 Hgb 8.6 gm/dl (11.8-15.2) L 08/04/20 05:29 Hct 26.7 % (35.5-45.6) L 08/04/20 05:29 MCV 85 fl (84-94) 08/04/20 05:29 MCH 28 pg (28-32) 08/04/20 05:29 MCHC 32 % (32-34) 08/04/20 05:29 RDW 18.9 % (13.2-15.2) H 08/04/20 05:29 Plt Count 386 K/mm3 (140-440) 08/04/20 05:29 Lymph % (Auto) 9.7 % (13.4-35.0) L 08/02/20 06:50 Vance % (Auto) 9.4 % (0.0-7.3) H 08/02/20 06:50 Eos % (Auto) 0.0 % (0.0-4.3) 08/02/20 06:50 Baso % (Auto) 0.1 % (0.0-1.8) 08/02/20 06:50 Lymph # (Auto) 0.6 K/mm3 (1.2-5.4) L 08/02/20 06:50 Vance # (Auto) 0.6 K/mm3 (0.0-0.8) 08/02/20 06:50 Eos # (Auto) 0.0 K/mm3 (0.0-0.4) 08/02/20 06:50 Baso # (Auto) 0.0 K/mm3 (0.0-0.1) 08/02/20 06:50 Seg Neutrophils % 80.8 % (40.0-70.0) H 08/02/20 06:50 Seg Neutrophils # 5.0 K/mm3 (1.8-7.7) 08/02/20 06:50 PT 13.1 Sec. (12.2-14.9) 08/02/20 06:50 INR 1.01 (0.87-1.13) 08/02/20 06:50 D-Dimer 587.40 ng/mlDDU (0-234) H 07/31/20 16:54 Sodium 137 mmol/L (137-145) 08/04/20 05:29 Potassium 4.1 mmol/L (3.6-5.0) 08/04/20 05:29 Chloride 104.9 mmol/L (98-107) 08/04/20 05:29 Carbon Dioxide 24 mmol/L (22-30) 08/04/20 05:29 Anion Gap 12 mmol/L 08/04/20 05:29 BUN 10 mg/dL (9-20) 08/04/20 05:29 Creatinine 0.6 mg/dL (0.8-1.3) L 08/04/20 05:29 Estimated GFR > 60 ml/min 08/04/20 05:29 BUN/Creatinine Ratio 17 % 08/04/20 05:29 Glucose 68 mg/dL (75-100) L 08/04/20 05:29 Lactic Acid 1.70 mmol/L (0.7-2.0) 07/31/20 18:07 Calcium 8.2 mg/dL (8.4-10.2) L 08/04/20 05:29 Ferritin > 2000.0 ng/mL (30.0-300.0) H 07/31/20 16:54 Total Bilirubin 0.20 mg/dL (0.1-1.2) 07/31/20 15:24 AST 69 units/L (5-40) H 07/31/20 15:24 ALT 34 units/L (7-56) 07/31/20 15:24 Alkaline Phosphatase 71 units/L (35-129) 07/31/20 15:24 Lactate Dehydrogenase 408 units/L (91-180) H 07/31/20 16:54 C-Reactive Protein 3.50 mg/dL (0.00-1.30) H 07/31/20 16:54 Total Protein 6.6 g/dL (6.3-8.2) 07/31/20 15:24 Albumin 2.5 g/dL (3.9-5) L 07/31/20 15:24 Albumin/Globulin Ratio 0.6 % 07/31/20 15:24 Procalcitonin 0.08 ng/mL (<0.15) 07/31/20 16:54 Urine Color Straw (Yellow) 07/31/20 Unknown Urine Turbidity Clear (Clear) 07/31/20 Unknown Urine pH 6.0 (5.0-7.0) 07/31/20 Unknown Ur Specific [place] 1.006 (1.003-1.030) 07/31/20 Unknown Urine Protein <15 mg/dl mg/dL (Negative) 07/31/20 Unknown Urine Glucose (UA) Neg mg/dL (Negative) 07/31/20 Unknown Urine Ketones Neg mg/dL (Negative) 07/31/20 Unknown Urine Blood Neg (Negative) 07/31/20 Unknown Urine Nitrite Neg (Negative) 07/31/20 Unknown Urine Bilirubin Neg (Negative) 07/31/20 Unknown Urine Urobilinogen < 2.0 mg/dL (<2.0) 07/31/20 Unknown Ur Leukocyte Esterase Neg (Negative) 07/31/20 Unknown Urine WBC (Auto) 1.0 /HPF (0.0-6.0) 07/31/20 Unknown Urine RBC (Auto) < 1.0 /HPF (0.0-6.0) 07/31/20 Unknown Urine Bacteria (Auto) 1+ /HPF (Negative) 07/31/20 Unknown Urine Mucus Few /HPF 07/31/20 Unknown Coronavirus (PCR) Negative (Negative) 08/01/20 Unknown Microbiology: Microbiology 07/31/20 15:24 Peripheral/Venous Blood Culture - Preliminary NO GROWTH AFTER 72 HOURS 07/31/20 15:29 Peripheral/Venous Blood Culture - Preliminary NO GROWTH AFTER 72 HOURS Arias/IV: Voiding Method Toilet IV Catheter Type [Left INT / Saline Lock Antecubital] IV Catheter Type [Right INT / Saline Lock Forearm] Active Medications - Current Medications Current Medications: Generic Name Dose Route Start Last Admin Trade Name Freq PRN Reason Stop Dose Admin Acetaminophen 650 mg 07/31/20 18:56 Acetaminophen 325 Mg Tab PO Q4H PRN Pain MILD(1-3)/Fever >100.5/KRUEGER Albuterol 2.5 mg 08/02/20 06:30 08/03/20 12:07 Albuterol 2.5 Mg/3 Ml Nebu IH 2.5 mg Q4HRT PRN Administration Shortness Of Breath Dexamethasone 6 mg 08/01/20 10:00 08/04/20 09:59 Dexamethasone 4 Mg/Ml Vial IV 6 mg Q24HR AMANDA Administration Enoxaparin Sodium 40 mg 07/31/20 22:00 08/03/20 21:21 Enoxaparin 40 Mg/0.4 Ml Inj SUB-Q 40 mg QDAY@2200 AMANDA Administration Protocol Guaifenesin 10 ml 08/01/20 06:24 08/02/20 10:39 Guaifenesin Dm 200/20 Mg Oral Liqd 10 Ml PO 10 ml Q4H PRN Administration Cough Levofloxacin 500 mg 08/03/20 13:00 08/04/20 09:46 Levofloxacin 500 Mg Tab PO 500 mg Q24HR AMANDA Administration Protocol Magnesium Hydroxide 30 ml 07/31/20 18:56 Magnesium Hydroxide (Mom) Oral Liqd Udc PO Q4H PRN Constipation Morphine Sulfate 2 mg 07/31/20 18:56 08/01/20 14:55 Morphine 2 Mg/1 Ml Inj IV 2 mg Q4H PRN Administration Pain, Moderate (4-6) Ondansetron HCl 4 mg 07/31/20 18:56 Ondansetron 4 Mg/2 Ml Inj IV Q8H PRN Nausea And Vomiting Pseudoephedrine/Acetam/Chlorphenir 10 ml 08/01/20 10:36 08/03/20 08:35 Guaifenesin/Codeine 100-10mg Oral Liqd 5 Ml PO 10 ml Q4H PRN Administration Cough Sodium Chloride 10 ml 07/31/20 22:00 08/04/20 10:00 Sodium Chloride 0.9% 10 Ml Flush Syringe IV 10 ml BID AMANDA Administration Sodium Chloride 10 ml 07/31/20 18:56 08/02/20 17:29 Sodium Chloride 0.9% 10 Ml Flush Syringe IV 10 ml PRN PRN Administration LINE FLUSH Trimethoprim/Sulfamethoxazole 2 each 08/03/20 10:39 08/04/20 05:30 Sulfamethoxazole/Trimethoprim 800/160mg Ds Tab PO 2 each Q8HR AMANDA Administration Protocol Nutrition/Malnutrition Assess - Dietary Evaluation Nutrition/Malnutrition Findings: Nutrition Notes Start: 08/02/20 09:16 Freq: Status: Active Protocol: Document 08/02/20 09:16 (Rec: 08/02/20 09:25 [id number]) Nutrition Notes Need for Assessment generated from: MD Order Initial or Follow up Assessment Current Diagnosis Sepsis Other Pertinent Diagnosis HIV, pneumonia Current Diet Regular Labs/Tests Cr 0.5 Pertinent Medications Reviewed Height 6 ft 1 in Weight 63.5 kg Usual Body Weight 72.72 kg [place] Body Weight (kg) 83.63 BMI 18.4 Intake Prior to Admission Poor Weight change and time frame 12.7% wt loss in 1 mo Weight Status Underweight Subjective/Other Information MD order for ONS and malnutrition. Pt reports UBW of 160lbs 1 mo ago and weight loss related to getting sick. 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 Pt ate 75% of breakfast and 100% ONS. Pt likes ONS and would like BID. Pt has no food prefrences. Burn Absent Trauma Absent GI Symptoms None Current % PO Good (75-100%) Minimum of two criteria Yes Energy Intake (non-severe) <75% Estimated Energy Requirement >7 days Interpretation of Weight Loss (severe) >5% in 1 month Body Fat Depletion Moderate depletion (severe) Muscle Mass Moderate Depletion (severe) #1 Nutrition Diagnosis Malnutrition Etiology chronic disease As Evidenced by Signs and Symptoms <75% EER in >7 days, 12% wt loss in 1 mo, severe muscle and fat depletion Is patient on ventilator? No Is Patient Ambulatory and/or Out of Bed Yes REE-([facility]-ambulatory/OOB) [ 2137.044 NUTR.MSJOOB] Kcal/Kg value to use for calculation 40 Approximate Energy Requirements Using 2540 kcal/Kg Calculation Used for Recommendations Kcal/kg Additional Notes Protein: 76-95g (1.2-1.5g/kg) Fluid: 1 ml/kcal Nutrition Intervention Change Diet Order: Continue Add Supplement/Snack (indicate name/kcal Ensure Enlive Vanilla or /protein ) [place] BID Provides kCal: 1,050 Provides Protein (gm) 60 Goal #1 Continue to meet at least 75% of protein and kcal needs via PO and ONS intakes Goal #2 Weight gain/maintanance Anticipated Discharge Needs: Regular with ONS PRN Follow-Up By: 08/05/20 Additional Comments FU for stable intakes, ONS tolernace
--- NOTE | 2020-08-04 14:25 | Progress Note ---
Assessment and Plan Cultures: Blood cultures no growth today SARS-CoV-2 PCR negative A/P: 30-year-old man has medical history HIV not on treatment but the hospital shortness of breath as Covid PUI #Left upper lobe pneumonia/PJP pneumonia?: SARS-CoV-2 PCR negative. Pneumocystis is typically bilateral, however that may not show up on chest x- ray. Normal procalcitonin. Patient is not currently hypoxic. O2 sats over 92%. CT chest shows bilateral airspace disease. #HIV: Not on medications for 5 years. No HIV provider in [place]. Will hold off on initiation of ART pending diagnosis #Oral candididais Recs: -Continue oral Bactrim DS 2 tablets p.o. 3 times daily for 21 days then bactrim DS 1 tab qday -Continue Levaquin 500 g p.o. total 5 days to cover atypical pneumonia -No indication for steroids given the patient is not hypoxic -Follow-up CD4 and viral load -Recommend patient follow-up with [place] [facility] as outpatient due to uninsured status - case manger referral -add fluconazole 200 mg po for 10 days for oral candidiasis OK to d/c when clinically stable Overall prognosis guarded patient needs to follow-up with HIV clinic Vivian Bonner MD [facility] Office [phone] Subjective Date of service: 08/04/20 Principal diagnosis: (1) Pneumonia Interval history: Feels better, no fever. Objective - Exam Narrative Exam: General appearance: Alert in NAD Eyes: anicteric sclerae, moist conjunctivae; no lid-lag; PERRLA HENT: Normocephalic, Atraumatic; normal external ears, nares open, oropharynx +thrush Neck: supple, tracheal midline, no JVD Lungs: CTA CV: RRR no murmur Abdomen: Soft, non-tender; no masses or hepatosplenomegaly Extremities: no edema, no cyanosis Skin: No rash. Psych: no agitated Neuro: alert and oriented x 3. Moving all extermities - Constitutional Vitals: Vital Signs Temp Pulse Resp BP Pulse Ox 98.8 F 98 H 18 87/54 100 08/04/20 11:56 08/04/20 11:56 08/04/20 11:56 08/04/20 11:56 08/04/20 11:56 Temperature -Last 24 Hours Temperature 98.8 F Temperature 98.9 F Temperature 97.8 F Temperature 97.2 F Temperature 97.9 F Temperature 97.9 F - Labs CBC & Chem 7: 08/04/20 05:29 08/04/20 05:29 Labs: Abnormal lab results 08/04/20 08/04/20 Range/Units 05:29 05:29 WBC 3.1 L (4.5-11.0) K/mm3 RBC 3.13 L (3.65-5.03) M/mm3 Hgb 8.6 L (11.8-15.2) gm/dl Hct 26.7 L (35.5-45.6) % RDW 18.9 H (13.2-15.2) % Creatinine 0.6 L (0.8-1.3) mg/dL Glucose 68 L (75-100) mg/dL Calcium 8.2 L (8.4-10.2) mg/dL
--- NOTE | 2020-08-04 14:50 | Discharge Summary ---
Providers - Providers Date of Admission: 07/31/20 18:55 Date of discharge: 08/04/20 Attending physician: DON DE LEON 07/31/20 17:01 Consult to Physician [CONS] Urgent Comment: Consulting Provider: SHELLEY GRAYSON Physician Instructions: Reason For Exam: pneumonia, hiv vs aids, r/o covid 08/02/20 06:38 Consult to Dietitian/Nutrition [CONS] Routine Physician Instructions: Reason For Exam: Reason for Consult: Malnutrition Primary care physician: DATA REPORTING ANALYST Hospitalization Condition: Stable Hospital course: --Pneumonia Patient started on empiric IV antibiotics. Follow cultures, supportive care, oxygen --Hypoxia Possibly secondary to the pneumonia. Closely monitor oxygen levels , adjust as needed Titrate O2 sats to more than 90% --History of HIV (human immunodeficiency virus infection) CD4 count unknown. Patient has been off his antiretroviral agents for about 5 years. ID following, management per ID -- Sepsis due to HIV pneumonia Follow cultures ,continue empiric IV antibiotics IV fluids, treat the underlying cause ID following --PUI ; Samuel PCR test negative DC isolation, treat underlying pneumonia --DVT prophylaxis Patient placed on subcutaneous Lovenox. Disposition: DC-01 TO HOME OR SELFCARE Time spent for discharge: 32 min Core Measure Documentation - Palliative Care Palliative Care/ Comfort Measures: Not Applicable - Core Measures Any of the following diagnoses?: none Exam - Constitutional Vitals: Temp Pulse Resp BP Pulse Ox 98.8 F 98 H 18 87/54 100 08/04/20 11:56 08/04/20 11:56 08/04/20 11:56 08/04/20 11:56 08/04/20 11:56 General appearance: Present: no acute distress, well-nourished - EENT Eyes: Present: PERRL, EOM intact - Neck Neck: Present: supple, normal ROM - Respiratory Respiratory effort: labored Respiratory: bilateral: diminished, negative: rales, rhonchi, wheezing - Cardiovascular Rhythm: regular Heart Sounds: Present: S1 & S2 - Extremities Extremities: no ischemia, No edema - Abdominal General gastrointestinal: Present: soft, non-tender, non-distended, normal bowel sounds - Integumentary Integumentary: Present: clear, warm - Musculoskeletal Musculoskeletal: strength equal bilaterally - Psychiatric Psychiatric: appropriate mood/affect, cooperative - Neurologic Neurologic: CNII-XII intact, moves all extremities Plan Activity: advance as tolerated Diet: regular Additional Instructions: Advised to follow [facility] in 1 week. Advised to follow primary care physician in 3 to 5 days. Strongly advised to comply with medications and follow-up physician visits Follow up with: PRIMARY CARE, [Primary Care Provider] - 7 Days Prescriptions: Sulfamethoxazole/Trimethoprim [Bactrim DS TAB] 2 each PO Q8HR #120 tablet Fluconazole [Diflucan TAB] 200 mg PO QDAY #10 tablet levoFLOXacin [Levaquin TAB] 500 mg PO Q24HR #4 tablet Albuterol Mdi (or & Nicu Only) [ProAir HFA Inhaler] 2 puff IH QID PRN #8.5 gram PRN Reason: Shortness Of Breath guaiFENesin/CODEINE [Robitussin AC] 10 ml PO Q4H PRN 10 Days #1 bottle PRN Reason: Cough
[2020-08-04] MEDS ORDERED: FLUCONAZOLE 200 MG TAB PO SCH (15:00)
[2020-08-04 16:25] VITALS: BP 96/61
[2020-08-06 10:29] LABS: HIV-1 RNA QN PCR 5.48 Log cps/mL
== END 2020-08-04 20:15 | disposition home or self-care (01) | DRG 976 ==
LOC: ED 14:18 → IMCU 18:55 → 3A 08-01 10:54 → 4A 08-02 00:14
PROVIDERS: ADMIT Internal Medicine Geriatric Medicine; ATTEND Internal Medicine
PROC: 3E0234Z Introduction of Serum, Toxoid and Vaccine into Muscle, Percutaneous Approach (ICD-10-PCS; principal; 2020-08-02)
DX: A41.9 Sepsis, unspecified organism (principal); B20 Human immunodeficiency virus [HIV] disease; J18.9 Pneumonia, unspecified organism; R09.02 Hypoxemia; Z20.822 Contact with and (suspected) exposure to COVID-19; Z23 Encounter for immunization
CPT/HCPCS: 36415; 71046; 71250; 80048; 80053; 81001; 82024; 82140; 82728; 82947; 83615; 84145; 85025; 85027; 85379; 85610; 86140; 87040; 87536; 93005; 94640; 94760; G0378; J0692; J1100; J1650; J2270; J3370; J7030; U0003

== ENCOUNTER 2020-11-22 12:37 | Emergency (ER) | payer SELFPAY ==
--- NOTE | 2020-11-22 15:57 | Emergency Department Report ---
ED General Adult HPI - General Chief complaint: Adult Asthma Stated complaint: ASTHMA Time Seen by Provider: 11/22/20 15:51 Source: patient Mode of arrival: Ambulatory Limitations: No Limitations - History of Present Illness Initial comments: 21-year-old -[place] male with a history of HIV asthma presents to the emergency room states that he has been wheezing for couple days now. He ran out of his medication a week ago. Is currently not in therapy for his HIV. He does report an appointment on 28 Nov 2020. Patient denies any chest pain no shortness of breath. No fever no chills. - Related Data Previous Rx's Medication Instructions Recorded Last Taken Type Fluconazole [Diflucan TAB] 200 mg PO QDAY #10 tablet 08/04/20 Unknown Rx Sulfamethoxazole/Trimethoprim 2 tab PO Q8H 20 Days #120 tablet 08/04/20 Unknown Rx [Bactrim DS TAB] guaiFENesin/CODEINE [Robitussin AC] 10 ml PO Q4H PRN 10 Days #1 bottle 08/04/20 Unknown Rx levoFLOXacin [Levaquin TAB] 500 mg PO Q24HR #4 tablet 08/04/20 Unknown Rx Albuterol Mdi (or & Nicu Only) 2 puff IH QID PRN #8.5 gram 11/22/20 Unknown Rx [ProAir HFA Inhaler] Allergies Allergy/AdvReac Type Severity Reaction Status Date / Time No Known Allergies Allergy Unverified 07/31/20 16:51 ED Review of Systems ROS: Stated complaint: ASTHMA Other details as noted in HPI Comment: All other systems reviewed and negative ED Past Medical Hx - Past Medical History Previous Medical History?: Yes Hx Asthma: Yes Hx HIV: Yes Additional medical history: HIV - Surgical History Past Surgical History?: No - Social History Smoking Status: Never Smoker Substance Use Type: Alcohol, Marijuana - Medications Home Medications: Home Medications Medication Instructions Recorded Confirmed Last Taken Type Fluconazole [Diflucan TAB] 200 mg PO QDAY #10 tablet 08/04/20 Unknown Rx Sulfamethoxazole/Trimethoprim 2 tab PO Q8H 20 Days #120 tablet 08/04/20 Unknown Rx [Bactrim DS TAB] guaiFENesin/CODEINE [Robitussin AC] 10 ml PO Q4H PRN 10 Days #1 bottle 08/04/20 Unknown Rx levoFLOXacin [Levaquin TAB] 500 mg PO Q24HR #4 tablet 08/04/20 Unknown Rx Albuterol Mdi (or & Nicu Only) 2 puff IH QID PRN #8.5 gram 11/22/20 Unknown Rx [ProAir HFA Inhaler] ED Physical Exam - General Limitations: No Limitations General appearance: alert, in no apparent distress - Head Head exam: Present: atraumatic, normocephalic - Eye Eye exam: Present: normal appearance - ENT ENT exam: Present: mucous membranes moist - Neck Neck exam: Present: normal inspection - Respiratory Respiratory exam: Present: normal lung sounds bilaterally. Absent: respiratory distress - Cardiovascular Cardiovascular Exam: Present: regular rate, normal rhythm. Absent: systolic murmur, diastolic murmur, rubs, gallop - GI/Abdominal GI/Abdominal exam: Present: soft, normal bowel sounds - Rectal Rectal exam: Present: deferred - Extremities Exam Extremities exam: Present: normal inspection - Back Exam Back exam: Present: normal inspection - Neurological Exam Neurological exam: Present: alert, oriented X3 - Psychiatric Psychiatric exam: Present: normal affect, normal mood - Skin Skin exam: Present: warm, dry, intact, normal color. Absent: rash ED Course Vital Signs 11/22/20 13:24 Temperature 98.4 F Pulse Rate 99 H Respiratory 14 Rate Blood Pressure 100/70 O2 Sat by Pulse 95 Oximetry ED Medical Decision Making - Medical Decision Making 21-year-old -[place] male with a history of HIV asthma presents to the emergency room states that he has been wheezing for couple days now. He ran out of his medication a week ago. Is currently not in therapy for his HIV. He does report an appointment on 28 Nov 2020. Patient denies any chest pain no shortness of breath. No fever no chills. Patient has a normal examination no wheezing. Discussed with patient I will refill his albuterol. Recommend patient to follow-up with a primary care provider. Patient verbalized understanding Critical care attestation.: If time is entered above; I have spent that time in minutes in the direct care of this critically ill patient, excluding procedure time. ED Disposition Clinical Impression: Asthma Qualifiers: Asthma severity: mild Asthma persistence: intermittent Asthma complication type: unspecified Qualified Code(s): J45.20 - Mild intermittent asthma, uncomplicated Disposition: TO HOME OR SELFCARE Is pt being admited?: No Does the pt Need Aspirin: No Condition: Stable Instructions: Asthma, Adult, [id number], Asthma (ED) Additional Instructions: Patient be refilled for his albuterol inhaler. Follow-up with a primary care provider. Please keep your appointment to your infectious disease provider on 11/28/2020. Prescriptions: Albuterol Mdi (or & Nicu Only) [ProAir HFA Inhaler] 2 puff IH QID PRN #8.5 gram PRN Reason: Shortness Of Breath Referrals: PRIMARY MD DANTE [Primary Care Provider] - 3-5 Days DESHAWN SCOTT MD [Staff Physician] - 3-5 Days
== END 2020-11-22 16:02 | disposition home or self-care (01) ==
LOC: ED 12:37
CPT/HCPCS: 99282